=== PATIENT | male | born 1995 | race African-American/Black ===

== ENCOUNTER 2020-10-16 12:58 | Emergency (ER) | payer SELFPAY ==
--- NOTE | 2020-10-16 13:08 | EDM.PDOC ---
ED HPI GENERAL MEDICAL PROBLEM - General Chief Complaint: General Stated Complaint: PAINFUL URINATION Time Seen by Provider: 10/16/20 12:59 - History of Present Illness INITIAL COMMENTS - FREE TEXT/NARRATIVE: History of present illness: Patient said he fell and has abrasions on his hands and abdomen. He also has trouble urinating. When asked if the fall was a cause for concern and he would have come to the emergency department had he not experience trouble urinating he said no. He did not injure his back or have any back pain. [] Patient has started having burning dysuria. He feels like it is difficult to go because it hurts to urinate. The burning is in the distal part of the urethra. He feels like he empties adequately although was more difficult than usual. He does not have urgency fever flank pain nausea vomiting or other signs of systemic illness. Review of systems: As per history of present illness and below otherwise all systems reviewed and negative. Past medical history: As per history of present illness and as reviewed below otherwise noncontributory. Surgical history: As per history of present illness and as reviewed below otherwise noncontributory. Social history: No reported history of drug or alcohol abuse. Family history: As per history of present illness and as reviewed below otherwise noncontributory. Physical exam: Constitutional - well developed, well-nourished and in no acute distress HEENT - normocephalic, no evidence of trauma - external nose and mouth normal - no mass in neck and no JVD - mucosae moist EYES - full EOM, PERRL, no icterus - no evidence of inflammation, injection, or drainage Respiratory - no respiratory distress, equal bilateral expansion GI - abdomen soft without distension or organomegaly - no guard or rebound -external genitalia with normal circumcised male with no evidence of periurethral irritation. Scrotal contents normal. Musculoskeletal no gross deformity of long bones or joints - no tenderness, swelling or edema Neurologic - Alert and oriented times four - CN II-XII grossly intact - motor sensory and coordination symmetrically normal Psychiatric - appropriate mood and affect with normal thought content Hematologic - No petechiae or purpura - mucosa appropriate color and sclera not pale - normal nail bed color and refill Integument - no rash or evidence of trauma - normal turgor Diagnostics: [] Therapeutics: [] Impression: [] Plan: [] Definitive disposition and diagnosis as appropriate pending reevaluation and review of above. - Related Data Allergies Allergy/AdvReac Type Severity Reaction Status Date / Time No Known Allergies Allergy Verified 10/16/20 13:21 Home Meds: Home Meds . [No Known Home Meds] 10/16/20 [History] ED ROS GENERAL - Review of Systems Review Of Systems: Comprehensive ROS is negative, except as noted in HPI. ED EXAM, GENERAL - Physical Exam Exam: See Below Free Text/Narrative:: Physical exam is in the HPI Course - Vital Signs Text/Narrative:: He was able to empty his bladder satisfactorily. Last Recorded V/S: Last Vital Signs Temp 36.1 C 10/16/20 13:17 Pulse 75 10/16/20 13:17 Resp 16 10/16/20 13:17 BP 113/90 10/16/20 13:17 Pulse Ox 99 10/16/20 13:17 - Orders/Labs/Meds Orders: Active Orders 24 hr Category Date Time Status CHLAMYDIA AND GONORRHEA BY TMA Stat Lab 10/16/20 13:30 Received CULTURE URINE [RM] Stat Lab 10/16/20 13:30 Received Labs: Laboratory Tests 10/16/20 Range/Units 13:30 Urine Color YELLOW Urine Appearance CLEAR Urine pH 6.5 (5.0-8.0) Ur Specific [place] 1.020 (1.001-1.035) Urine Protein NEGATIVE (NEGATIVE) mg/dL Urine Glucose (UA) NEGATIVE (NEGATIVE) mg/dL Urine Ketones NEGATIVE (NEGATIVE) mg/dL Urine Occult Blood NEGATIVE (NEGATIVE) Urine Nitrite NEGATIVE (NEGATIVE) Urine Bilirubin NEGATIVE (NEGATIVE) Urine Urobilinogen 0.2 (<2.0) EU/dL Ur Leukocyte Esterase NEGATIVE (NEGATIVE) Meds: Medications Discontinued Medications Generic Name Dose Route Start Last Admin Trade Name Freq PRN Reason Stop Dose Admin Azithromycin 1,000 mg 10/16/20 13:27 10/16/20 13:40 Zithromax PO 10/16/20 13:28 1,000 mg Q24H ONE Administration Ceftriaxone Sodium Confirm 10/16/20 13:34 10/16/20 13:39 Rocephin Administered 10/16/20 13:35 Not Given Dose 250 mg .ROUTE .STK-MED ONE Ceftriaxone Sodium 250 mg/ 1 mls @ 1 mls/sec 10/16/20 13:27 10/16/20 13:42 Lidocaine HCl IM 10/16/20 13:28 Not Given ONETIME ONE Ceftriaxone Sodium 250 mg/ 1 mls @ 1 mls/sec 10/16/20 13:31 10/16/20 13:43 Lidocaine HCl IM 10/16/20 13:32 Not Given ONETIME ONE Lidocaine HCl Confirm 10/16/20 13:34 10/16/20 13:39 Xylocaine-Mpf 1% Administered 10/16/20 13:35 Not Given Dose 2 mls @ as directed .ROUTE .STK-MED ONE Ceftriaxone Sodium 250 mg/ 1 mls @ 1 mls/sec 10/16/20 13:39 10/16/20 13:41 Lidocaine HCl IM 10/16/20 13:40 1 mls/sec ONETIME ONE Administration Departure - Departure Time of Disposition: 14:38 Disposition: Home, Self-Care 01 Condition: Good Clinical Impression: Urethral syndrome - Discharge Information Instructions: Preventing Sexually Transmitted Infections, Adult Referrals: PCP,None [Primary Care Provider] - Forms: ED Department Discharge Additional Instructions: You were tested for gonorrhea and chlamydia. You have adequate treatment should this infectious process be due to either of those. Further testing for HIV and syphilis are necessary if you have been exposed to sexually transmitted infection. This can be done at [facility], see below. [facility] [address] [place] [id number] [address] [facility] [address], [address] [place] [address] The following information is given to patients seen in the emergency department who are being discharged to home. This information is to outline your options for follow-up care. We provide all patients seen in our emergency department with a follow-up referral. The need for follow-up, as well as the timing and circumstances, are variable depending upon the specifics of your emergency department visit. If you don't have a primary care physician on staff, we will provide you with a referral. We always advise you to contact your personal physician following an emergency department visit to inform them of the circumstance of the visit and for follow-up with them and/or the need for any referrals to a consulting specialist. The emergency department will also refer you to a specialist when appropriate. This referral assures that you have the opportunity for follow-up care with a sp ecialist. All of these measure are taken in an effort to provide you with optimal care, which includes your follow-up. Under all circumstances we always encourage you to contact your private physicia n who remains a resource for coordinating your care. When calling for follow-up care, please make the office aware that this follow-up is from your recent emergency room visit. If for any reason you are refused follow-up, please contact the [facility] Emergency Department at and asked to speak to the emergency department charge nurse. Sepsis Event Note (ED) - Focused Exam Vital Signs: Vital Signs Temp Pulse Resp BP Pulse Ox 10/16/20 13:17 36.1 C 75 16 113/90 99 - My Orders Last 24 Hours: My Active Orders 10/16/20 13:30 CHLAMYDIA AND GONORRHEA BY TMA Stat CULTURE URINE [RM] Stat - Assessment/Plan Last 24 Hours: My Active Orders 10/16/20 13:30 CHLAMYDIA AND GONORRHEA BY TMA Stat CULTURE URINE [RM] Stat
[2020-10-16] MEDS ORDERED: cefTRIAXone 250 MG in Lidocaine 1% 1 ML IM ONE ×3 (13:27→13:39)
[2020-10-16] MEDS ORDERED: Azithromycin 250 MG Tab PO ONE (13:27)
[2020-10-16] MEDS ORDERED: cefTRIAXone 250 MG Vial ONE (13:34)
[2020-10-16] MEDS ORDERED: Lidocaine 1% 2 ML ONE (13:34)
[2020-10-18 12:04] LABS: C.TRACHOMATIS BY TMA Positive (Negative); N.GONORRHOEAE BY TMA Negative (Negative)
== END 2020-10-16 14:48 | disposition home or self-care (01) ==
LOC: MW.ED 12:58
DX: N34.3 Urethral syndrome, unspecified (principal)
CPT/HCPCS: 81003; 87086; 87491; 87591; 96372; 99283; A9270; J0696; J2001; 99282

== ENCOUNTER 2022-06-29 17:40 | Emergency (ER) | payer SELFPAY ==
[2022-06-29] MEDS ORDERED: Diphtheria,Pertussis(Acell),Tetanus Vaccine 0.5 ML Syringe IM ONE (17:53)
== END 2022-06-29 18:47 | disposition home or self-care (01) ==
LOC: MW.ED 17:40
DX: S61.211A Laceration without foreign body of left index finger without damage to nail, initial encounter (principal); Z23 Encounter for immunization
CPT/HCPCS: 90471; 90715; 99282-25

== ENCOUNTER 2024-02-26 19:01 | Emergency (ER) | payer SELFPAY ==
[2024-02-26] MEDS: Lidocaine 1% with EPINEPHrine 1:200,000 30 ML SDV ONE (19:42)
[2024-02-26] MEDS: Lidocaine 1% with EPINEPHrine 1:100,000 50 ML MDV INFILT STA (19:43)
[2024-02-26] MEDS: Lidocaine 1% with EPINEPHrine 1:200,000 30 ML SDV INJECT STA (19:43)
[2024-02-26] MEDS: Ibuprofen 600 MG Tab PO ONE (20:20)
[2024-02-26] MEDS: Acetaminophen/oxyCODONE 325-5 MG Tab PO ONE (20:21)
[2024-02-26] MEDS: Sulfamethoxazole/Trimethoprim 800-160 MG Tab PO ONE (20:21)
== END 2024-02-26 20:33 | disposition home or self-care (01) ==
LOC: MW.ED 19:01
DX: L02.214 Cutaneous abscess of groin (principal); Z75.8 Other problems related to medical facilities and other health care
CPT/HCPCS: 10060; 99282; A9270; J3490; 99283